=== PATIENT | male | born 1960 | race Caucasian/White ===

== ENCOUNTER 2017-09-09 20:29 | Emergency (ER) | payer OTHER ==
[~2017-09-09] VITALS: Ht 165.1 cm; Wt 90.7 kg
[2017-09-09] MEDS ORDERED: MUSCLE RELAXANT PO (20:35)
[2017-09-09] MEDS ORDERED: ATOR10TA PO (20:35)
[2017-09-09] MEDS ORDERED: PROMETHAZINE HCL 25 MG/1 ML VIAL IM ONE (21:00)
[2017-09-09] MEDS ORDERED: HYDROMORPHONE 1 MG/1 ML DISP.SYRIN IM ONE (21:00)
[2017-09-09] MEDS ORDERED: PROMETHAZINE HCL 25 MG/1 ML VIAL ONE (21:11)
[2017-09-09] MEDS ORDERED: HYDROMORPHONE 2 MG/1 ML DISP.SYRIN ONE (21:11)
--- NOTE | 2017-09-09 21:19 | NUR ---
Patient discharged to home in stable conditon. Written and verbal after care instructions given. Patient verbalizes understanding of instructions.
== END 2017-09-09 21:20 | disposition home or self-care (01) ==
LOC: ER 20:29
DX: M54.5 Low back pain (principal); E78.00 Pure hypercholesterolemia, unspecified
CPT/HCPCS: A4663; J1170; J2550